=== PATIENT | male | born 1975 | race Caucasian/White ===

== ENCOUNTER → 2017-04-30 | Outpatient (REF) ==
[~2017-04-30] MED LIST: NAPR-724 PO
== END ==
LOC: RESP 19:41 → EDSTATUS 20:00
PROVIDERS: ATTEND Nurse Practitioner
DX: R53.83 Other fatigue (principal); G47.33 Obstructive sleep apnea (adult) (pediatric); G47.36 Sleep related hypoventilation in conditions classified elsewhere; E66.9 Obesity, unspecified

== ENCOUNTER → 2017-06-09 | Outpatient (REF) ==
[~2017-06-09] MED LIST changes: -NAPR-724 PO; +NAPR500T31 PO
== END ==
LOC: RESP 19:52 → EDSTATUS 20:00
PROVIDERS: ATTEND Family Medicine
DX: G47.33 Obstructive sleep apnea (adult) (pediatric) (principal); G47.36 Sleep related hypoventilation in conditions classified elsewhere; E66.9 Obesity, unspecified

== ENCOUNTER → 2017-07-02 | Outpatient (REF) ==
--- NOTE | 2017-07-02 14:31 | RADIOLOGY IMAGING REPORT ---
FACILITY: [facility] PATIENT NAME: Jonh Marrero : 1975 MR: [id number] V: [id number] EXAM DATE: ORDERING PHYSICIAN: JOSEPH ESTRADA TECHNOLOGIST: Location: [facility] [place] Patient: Jonh Marrero : 1975 Visit/Account:[id number] Date of Sevice: 07/02/2017 LUMBAR SPINE 2 OR 3 VIEW COMPARISON: None. HISTORY: 7 years of low back pain TECHNIQUE: Lumbar spine radiographs (3 views) FINDINGS: ALIGNMENT: Normal alignment. VERTEBRAL BODIES: Intact vertebral body heights without fracture or osseous lesion. No significant osseous degenerative changes. DISC SPACES: No significant disc space narrowing. Intervertebral disc calcifications anteriorly in t he lower thoracic and upper lumbar spine. SACROILIAC JOINTS: Unremarkable. OTHER: Sclerotic lesion in the right acetabulum consistent with a bone island. IMPRESSION: Negative lumbar spine. Report Dictated By: Celio Perez at 07/02/2017 2:23 PM Report E-Signed By: Celio Perez at 07/02/2017 2:25 PM WSN:[id number]
== END ==
LOC: RAD 13:21
PROVIDERS: ATTEND Orthopaedic Surgery Orthopaedic Surgery of the Spine
DX: M54.5 Low back pain (principal)
CPT/HCPCS: 72100